=== PATIENT | male | born 1985 | race Caucasian/White ===

== ENCOUNTER 2017-03-24 17:45 | Emergency (ER) | payer BC ==
--- NOTE | 2017-03-24 18:22 | EDM.PDOC ---
ED HPI GENERAL MEDICAL PROBLEM - General Chief Complaint: Skin Complaint Stated Complaint: INFECTION ON THE BACK OF NECK Time Seen by Provider: 03/24/17 18:19 Source of Information: Reports: Patient History Limitations: Reports: No Limitations - History of Present Illness INITIAL COMMENTS - FREE TEXT/NARRATIVE: HISTORY AND PHYSICAL: []31-year-old male presenting with neck pain History of Present Illness: []Pain has been gradually worsening with now a bump there Review of Systems: As per history of present illness and below otherwise all systems reviewed and negative. Past medical history: As per history of present illness and as reviewed below otherwise noncontributory. Surgical history: As per history of present illness and as reviewed below otherwise noncontributory. Social history: No reported history of drug or alcohol abuse. Family history: As per history of present illness and as reviewed below otherwise noncontributory. Physical exam: Alert and oriented male answering questions appropriately HEENT: Atraumatic, normocehpalic, pupils reactive, negative for conjunctival pallor or scleral icterus, mucous membranes moist, throat clear, neck supple, nontender, trachea midline. Posterior neck with cystic area erythema tender upon palpation Lungs: Clear to auscultation, breath sounds equal bilaterally, chest non tender. Heart: S1S2, regular, negative for clicks, rubs, or JVD. Abdomen: Soft, nondistended, nontender. Negative for masses or hepatossplenmegaly. Negative for costovertebral tenderness. Pelvis: Stable nontender. Genitourinary: Deferred. Rectal: Deferred Extremities: Atraumatic, negative for cords or calf pain. Neurovascular unremarkable. Neuro: Awake, alert, oriented. Cranial nerves II through XII unremarkable. Cerebellum unremarkable. Motor and sensory unremarkable throughout. Exam nonfocal. 1% lidocaine was utilized for local anesthesia and blade was then used to open the skin copious amounts of thick pasty material expelled. 2 inches of half-inch plain gauze was inserted into the opening. Band-Aid applied over the top leave this intact for 2 days then may take the dressing out. Diagnostics: [] Therapeutics: [ I&D] Impression: [Sebaceous cyst] Plan: []Follow-up with primary care in 1 week Gauze to be removed in 24 hours Definitive disposition and diagnosis as appropriate pending reevaluation and review of above. Onset: Gradual Duration: Day(s):, Getting Worse Location: Reports: Neck Quality: Reports: Ache, Pressure Severity: Moderate Improves with: Reports: None lump on neck Pain Score (Numeric/FACES): 4 - Related Data Allergies Allergy/AdvReac Type Severity Reaction Status Date / Time No Known Allergies Allergy Verified 03/24/17 17:55 Home Meds: Home Meds . [No Known Home Meds] 03/24/17 [History] Past Medical History - Past Health History Medical/Surgical History: Denies Medical/Surgical History Social & Family History - Family History Family Medical History: Noncontributory - Tobacco Use Smoking Status *Q: Never Smoker - Caffeine Use Caffeine Use: Reports: Coffee, Energy Drinks, Soda - Recreational Drug Use Recreational Drug Use: No ED ROS GENERAL - Review of Systems Review Of Systems: ROS reveals no pertinent complaints other than HPI. ED EXAM, SKIN/RASH Exam: See Below (The dictation) Course - Vital Signs Last Recorded V/S: Last Vital Signs Temp 36.4 C 03/24/17 17:55 Pulse 80 03/24/17 17:55 Resp 18 03/24/17 17:55 BP 126/63 03/24/17 17:55 Pulse Ox 98 03/24/17 17:55 - Orders/Labs/Meds Meds: Medications Discontinued Medications Generic Name Dose Route Start Last Admin Trade Name Jw PRN Reason Stop Dose Admin Lidocaine HCl 20 ml 03/24/17 18:23 03/24/17 18:43 Xylocaine 1% INJECT 03/24/17 18:24 20 ml ONETIME ONE Administration Departure - Departure Time of Disposition: 18:45 Disposition: Home, Self-Care 01 Condition: Good Clinical Impression: Sebaceous cyst - Discharge Information Referrals: PCP,None [Primary Care Provider] - Forms: ED Department Discharge Additional Instructions: The following information is given to patients seen in the emergency department who are being discharged to home. This information is to outline your options for follow-up care. We provide all patients seen in our emergency department with a follow-up referral. The need for follow-up, as well as the timing and circumstances, are variable depending upon the specifics of your emergency department visit. If you don't have a primary care physician on staff, we will provide you with a referral. We always advise you to contact your personal physician following an emergency department visit to inform them of the circumstance of the visit and for follow-up with them and/or the need for any referrals to a consulting specialist. The emergency department will also refer you to a specialist when appropriate. This referral assures that you have the opportunity for followup care with a specialist. All of these measure are taken in an effort to provide you with optimal care, which includes your followup. Under all circumstances we always encourage you to contact your private physician who remains a resource for coordinating your care. When calling for followup care, please make the office aware that this follow-up is from your recent emergency room visit. If for any reason you are refused follow-up, please contact the [facility] emergency department at and asked to speak to the emergency department charge nurse. Remove Band-Aid and gauze in 2 days Follow-up with your primary care provider If symptoms of infection such as heat redness swelling increased pain return for reevaluation
[2017-03-24] MEDS ORDERED: Lidocaine 1% 20 ML MDV INJECT ONE (18:23)
[2017-03-24 18:59] VITALS: BP 119/72
== END 2017-03-24 18:59 | disposition home or self-care (01) ==
LOC: MW.ED 17:45
DX: L72.3 Sebaceous cyst (principal)
CPT/HCPCS: 10061; 99283